=== PATIENT | female | born 1955 | race American Indian/Alaskan Native ===

== ENCOUNTER 2021-12-02 15:24 | Observation (INO) | payer MEDICARE ==
[2021-12-02] MEDS ORDERED: ONDANSETRON 4 MG/2 ML INJ IV ONE (15:37)
[2021-12-02] MEDS ORDERED: MORPHINE 2 MG/1 ML INJ IV ONE (15:37)
--- NOTE | 2021-12-02 15:44 | Emergency Department Report ---
Blank Doc - Documentation Documentation: 66-year-old female that presents with mid and lower back pains s/p trip and fall that occurred [employer]. Patient denies any other injuries or complaints. Denies any LOC. Denies any weakness. Denies any neck pains or headaches. Exam: Mid and lower back tenderness. Otherwise physical exam is unremarkable. 1- This is a initial triage assessment/medical screening only. Full assessment and work-up will be completed once the patient is in proper hospital gown, ED bed and in a private room setting. This initial assessment/diagnostic orders/clinical plan/ treatment(s) is/are subject to change based on pt's health status, clinical progression and re-assessment by fellow clinical providers in the ED. Further treatment and workup at subsequent clinical providers discretion. Patient/guardians urged not to elope from ED as their condition may be serious if not clinically assessed and managed. 2-xrays 3-morphine/zofran The patient was evaluated in the emergency department for symptoms described in the history of present illness. He/she was evaluated in the context of the global COVID-19 pandemic, which necessitated consideration that the patient might be at risk for infection with the virus that causes COVID-19. Institutional protocols and algorithms that pertain to the evaluation of patients at risk for COVID-19 are in a state of rapid change based on information released by regulatory bodies including the CDC and federal and state organizations. These policies and algorithms were followed during the patient's care in the emergency department. Please note that these policies, procedures and recommendations changed on a rapid basis.
--- NOTE | 2021-12-02 16:15 | XRay Report ---
Thoracic spine 2 views INDICATION: Back pain FINDINGS: Alignment appears normal. No compression fractures seen. Pedicles appear normal throughout. Signer Name: Dima Ledezma MD Signed: 12/02/2021 4:10 PM Workstation Name: [id number]
--- NOTE | 2021-12-02 16:24 | XRay Report ---
Lumbar spine, 2 views HISTORY: Low back pain after fall COMPARISON: None available FINDINGS: There is an age-indeterminate but recent appearing compression fracture of the superior endplate of L 2 with approximately 25% vertebral body height loss. No significant retropulsion. Other vertebral bod y heights are maintained. Alignment is normal. Mild/moderate lower lumbar spondylosis. Signer Name: Hansel Rojas MD Signed: 12/02/2021 4:19 PM Workstation Name: [id number]
[2021-12-02] MEDS ORDERED: fentaNYL 100 MCG/2 ML INJ IV ONE (17:37)
[2021-12-02] MEDS ORDERED: KETOROLAC 30 MG/1 ML INJ IV ONE (17:38)
--- NOTE | 2021-12-02 17:47 | Emergency Department Report ---
HPI - General Chief Complaint: Back Pain/Injury Time Seen by Provider: 12/02/21 15:36 - HPI HPI: Reassessment 2 The patient is a 66-year-old female present with a chief complaint of back pain after fall. Patient states earlier today she slipped and fell landing on her buttocks. Patient complains of severe low back pain since the fall. Patient gives her pain a score of 10/10 ED Past Medical Hx - Past Medical History Hx Hypertension: Yes Additional medical history: Hypercholesterolemia, osteoarthritis, gastritis, peripheral edema - Surgical History Hx Appendectomy: Yes Additional Surgical History: Hysterectomy - Family History Family history: no significant - Social History Smoking Status: Current Every Day Smoker (1/2 pack/day) Substance Use Type: None ED Review of Systems ROS: Stated complaint: FALL Other details as noted in HPI Constitutional: no symptoms reported Eyes: denies: eye pain ENT: denies: throat pain Respiratory: no symptoms reported Cardiovascular: denies: chest pain Endocrine: no symptoms reported Gastrointestinal: denies: abdominal pain Genitourinary: denies: dysuria Musculoskeletal: back pain Neurological: denies: headache Physical Exam - Physical Exam Vital Signs: Vital Signs 12/02/21 12/02/21 15:40 15:52 Temperature 97.5 F L 97.5 F L Pulse Rate 70 70 Respiratory 18 18 Rate Blood Pressure 168/103 168/103 [Right] O2 Sat by Pulse 98 98 Oximetry Physical Exam: GENERAL: The patient is well-developed well-nourished female lying on stretcher not appearing to be in acute distress. [] HEENT: Normocephalic. Atraumatic. Extraocular motions are intact. Patient has moist mucous membranes. NECK: Supple. Trachea midline CHEST/LUNGS: There is no respiratory distress noted. SKIN: There is no rash. There is no edema. There is no diaphoresis. NEURO: The patient is awake, alert, and oriented. The patient is cooperative. The patient has no focal neurologic deficits. The patient has normal speech. GCS 15 MUSCULOSKELETAL: There is tenderness to palpation of the axial lumbar spine. There is no step-off. There is no tenderness to palpation of the thoracic or cervical spine. There is no evidence of acute injury. ED Course Vital Signs 12/02/21 12/02/21 15:40 15:52 Temperature 97.5 F L 97.5 F L Pulse Rate 70 70 Respiratory 18 18 Rate Blood Pressure 168/103 168/103 [Right] O2 Sat by Pulse 98 98 Oximetry - Consultations Consultation #1: 12/02/21 18:59 Neurosurgery paged 12/02/21 19:13 Case discussed with neurosurgeon Dr. Browne-recommends admission for pain control and will have patient fitted for a brace ED Medical Decision Making - Radiology Data Radiology results: report reviewed (Thoracic spine x-ray, lumbar spine x-ray, CT lumbar spine), image reviewed (Thoracic spine x-ray, lumbar spine x-ray, CT lumbar spine) interpreted by me: Thoracic spine x-ray-no acute fracture [facility] [address] [place] [address] XRay Report Signed Patient: TIFFANI KATHLEEN MR#: [id number] : 1955 Acct:[id number] Age/Sex: 66 / F ADM Date: 12/02/21 Loc: ED Attending Dr: Ordering Physician: MERCY ECKERT NP Date of Service: 12/02/21 Procedure(s): XR spine thoracic 2V Accession Number(s): [id number] cc: MERCY ECKERT NP Fluoro Time In Minutes: Thoracic spine 2 views INDICATION: Back pain FINDINGS: Alignment appears normal. No compression fractures seen. Pedicles appear normal throughout. Signer Name: Dima Ledezma MD Signed: 12/02/2021 4:10 PM Workstation Name: [id number] Transcribed By: CW Dictated By: REBECA LEDEZMA MD Electronically Authenticated By: ERBECA LEDEZMA MD Signed Date/Time: 12/02/211609 DD/ 09 TD/TT: Print Cancel [facility] [address] [place] [address] XRay Report Signed Patient: TIFFANI KATHLEEN MR#: [id number] : 1955 Acct:[id number] Age/Sex: 66 / F ADM Date: 12/02/21 Loc: ED Attending Dr: Ordering Physician: MERCY ECKERT NP Date of Service: 12/02/21 Procedure(s): XR spine lumbosacral 2-3V Accession Number(s): [id number] cc: DAMIEN LAND Time In Minutes: Lumbar spine, 2 views HISTORY: Low back pain after fall COMPARISON: None available FINDINGS: There is an age-indeterminate but recent appearing compression fracture of the superior endplate of L2 with approximately 25% vertebral body height loss. No significant retropulsion. Other vertebral body heights are maintained. Alignment is normal. Mild/moderate lower lumbar spondylosis. Signer Name: José Luis Rojas MD Signed: 12/02/2021 4:19 PM Workstation Name: [id number] Transcribed By: JS Dictated By: JOSÉ LUIS ROJAS MD Electronically Authenticated By: JOSÉ LUIS ROJAS MD Signed Date/Time: 12/02/211618 DD/ 11 TD/TT: [facility] [address] [id number] Cat Scan Report Signed Patient: TIFFANI KATHLEEN MR#: [id number] : 1955 Acct:[id number] Age/Sex: 66 / F ADM Date: 12/02/21 Loc: ED Attending Dr: Ordering Physician: MISTY NAZARIO MD Date of Service: 12/02/21 Procedure(s): CT lumbar spine wo con Accession Number(s): [id number] cc: MISTY NAZARIO MD CT LUMBAR SPINE WITHOUT CONTRAST HISTORY: Fell down COMPARISON: Both sacral spine series obtained earlier today TECHNIQUE: CT images of the lumbar spine were obtained without contrast. Sagittal and coronal reformats were post- processed.All CT scans at this location are performed using CT dose reduction for ALARA by means of automated exposure control. CONTRAST: None. FINDINGS: Alignment: Normal. No traumatic subluxation. Vertebrae: L2 vertebral body: Vertebral compression fracture involving the superior endplate and anterior cortex and posterior cortex; inferior cortex normal; approximately 20% height loss; posterior elements normal; posterior band intact; minimal retropulsion on the left side with the minimal narrowing of the bony canal; this is a type A 3 compression injury anterior column. Other lumbar vertebral bodies: Normal Disc Spaces: L1-L2: Shallow disc bulge; neuroforamina are normal L2-L3: Normal Other lumbar vertebral bodies: Normal Facet Joints:No significant abnormality. Additional Findings: None IMPRESSION: L2 vertebral body: Vertebral compression fracture along the superior endplate with approximately 25% height loss; fracture line involves superior endplate, anterior cortex and the posterior cortex; minimal retropulsion on the left side; posterior band intact; type A 3 compression fracture Signer Name: Phyllis Butler MD Signed: 12/02/2021 6:48 PM Workstation Name: [email or web address] Transcribed By: BS Dictated By: Phyllis Hillman MD Electronically Authenticated By: Phyllis Hillmna MD Signed Date/Time: 12/02/211847 DD/ 40 TD/TT: Print Cancel - Differential Diagnosis Lumbar fracture, lumbar strain, lumbar contusion Critical care attestation.: If time is entered above; I have spent that time in minutes in the direct care of this critically ill patient, excluding procedure time. ED Disposition Clinical Impression: Compression fracture of L2 Disposition: ADMITTED INPATIENT Is pt being admited?: Yes Does the pt Need Aspirin: No Condition: Fair Referrals: MANDO DUMONT MD [Primary Care Provider] - 3-5 Days Time of Disposition: 19:33 (Hospitalist called (Dr. Castellanos))
--- NOTE | 2021-12-02 18:53 | Cat Scan Report ---
CT LUMBAR SPINE WITHOUT CONTRAST HISTORY: Fell down COMPARISON: Both sacral spine series obtained earlier today TECHNIQUE: CT images of the lumbar spine were obtained without contrast. Sagittal and coronal reform ats were post-processed.All CT scans at this location are performed using CT dose reduction for ALARA by means of automated exposure control. CONTRAST: None. FINDINGS: Alignment: Normal. No traumatic subluxation. Vertebrae: L2 vertebral body: Vertebral compression fracture involving the superior endplate and anterior cortex and posterior cortex; inferior cortex normal; approximately 20% height loss; posterior elements norm al; posterior band intact; minimal retropulsion on the left side with the minimal narrowing of the [place] canal; this is a type A 3 compression injury anterior column. Other lumbar vertebral bodies: Normal Disc Spaces: L1-L2: Shallow disc bulge; neuroforamina are normal L2-L3: Normal Other lumbar vertebral bodies: Normal Facet Joints:No significant abnormality. Additional Findings: None IMPRESSION: L2 vertebral body: Vertebral compression fracture along the superior endplate with approximately 25% height loss; fracture line involves superior endplate, anterior cortex and the posterior cortex; mini mal retropulsion on the left side; posterior band intact; type A 3 compression fracture Signer Name: Phyllis Butler MD Signed: 12/02/2021 6:48 PM Workstation Name: [id number]
--- NOTE | 2021-12-03 00:13 | History and Physical Report ---
History of Present Illness Date of examination: 12/02/21 Date of admission: 12/02/21 19:23 Chief complaint: Severe low back pain with radiation to the right leg after fall History of present illness: 66-year-old female slipped and fell down today. Since then patient has been low back pain with radiation into right lower 70. Pain is about 10 on a scale of 1- 10 Patient has a history of osteoarthritis and hyperlipidemia. - Past Medical History --Hypertension: Yes --Additional medical history: Hypercholesterolemia, osteoarthritis, gastritis, peripheral edema - Surgical History --Appendectomy: Yes --Additional Surgical History: Hysterectomy - Family History --Family history: no significant - Social History Smoking Status: Current Every Day Smoker (1/2 pack/day) Substance Use Type: None Review of Systems ROS: Stated complaint: FALL Other details as noted in HPI Constitutional: no symptoms reported Eyes: denies: eye pain ENT: denies: throat pain Respiratory: no symptoms reported Cardiovascular: denies: chest pain Endocrine: no symptoms reported Gastrointestinal: denies: abdominal pain Genitourinary: denies: dysuria Musculoskeletal: back pain Neurological: denies: headache Medications and Allergies Allergies Allergy/AdvReac Type Severity Reaction Status Date / Time No Known Allergies Allergy Verified 12/02/21 15:43 Exam - Constitutional Vitals: Temp Pulse Resp BP Pulse Ox 97.5 F L 70 18 168/103 98 12/02/21 15:52 12/02/21 15:52 12/02/21 15:52 12/02/21 15:52 12/02/21 15:52 General appearance: Present: mild distress, well-nourished - EENT Eyes: Present: PERRL ENT: hearing intact, clear oral mucosa - Neck Neck: Present: supple, normal ROM - Respiratory Respiratory effort: normal Respiratory: bilateral: CTA - Cardiovascular Heart rate: 78 Rhythm: regular Heart Sounds: Present: S1 & S2. Absent: rub, click - Extremities Extremities: no ischemia, pulses intact, pulses symmetrical, No edema, abnormal (Lower back tenderness present and straight leg raising test positive on right side) Peripheral Pulses: within normal limits - Abdominal General gastrointestinal: Present: soft, non-tender, non-distended, normal bowel sounds Female genitourinary: Present: normal - Integumentary Integumentary: Present: clear, warm, dry - Musculoskeletal Musculoskeletal: gait normal, strength equal bilaterally - Psychiatric Psychiatric: appropriate mood/affect, intact judgment & insight - Neurologic Neurologic: CNII-XII intact, moves all extremities - Allied Health Allied health notes reviewed: nursing, case management Results - Imaging and Cardiology Imaging and Cardiology: X-rays of the lumbar spine Compression fracture of the superior endplate of L2 with approximately 25% vertebral body height loss. No retropulsion. Other vertebral heights are maintained. Alignment is normal. Mild/moderate lower lumbar spondylosis. Lumbar spine CT L2 vertebral body compression fracture along the superior endplate with approximately 25% height loss. Fracture line involves the superior endplate. Anterior cortex of the posterior cortex minimal retropulsion of the left side. Posterior band intact. CAD. 3 compression fracture. Thoracic spine Normal. No compression fractures. Assessment and Plan Advance Directives: Yes (Full code) VTE prophylaxis?: Chemical Plan of care discussed with patient/family: Yes - Patient Problems (1) Compression fracture of L2 Current Visit: Yes Status: Acute Qualifiers: Encounter type: initial encounter Qualified Code(s): S32.020A - Wedge compression fracture of second lumbar vertebra, initial encounter for closed fracture Plan to address problem: Compression fracture with radiculopathy Pain management for now Neurosurgery consulted Probably no binder but back binder (2) Hypertension Current Visit: Yes Status: Chronic Qualifiers: Hypertension type: primary hypertension Qualified Code(s): I10 - Essential (primary) hypertension Plan to address problem: Continue antihypertensives (3) DVT prophylaxis Current Visit: Yes Status: Acute Plan to address problem: On anticoagulation and GI prophylaxis (4) Advance care planning Current Visit: Yes Status: Acute Plan to address problem: Disease education collected, care plan discussed, diagnosis discussed, prognosis discussed. Patient is full code. Patient acknowledges understanding and agreement with care plan. +30 minutes.
[2021-12-03] MEDS ORDERED: oxyCODONE /ACETAMINOPHEN 5-325MG TAB PO PRN (00:14)
[2021-12-03] MEDS ORDERED: ACETAMINOPHEN 325 MG TAB PO PRN (00:14)
[2021-12-03] MEDS ORDERED: ONDANSETRON 4 MG/2 ML INJ IV PRN (00:14)
[2021-12-03] MEDS ORDERED: HYDROmorphone 1 MG/1 ML INJ IV PRN (00:14)
[2021-12-03] MEDS ORDERED: METOCLOPRAMIDE 10 MG/2 ML INJ IV PRN (00:14)
[2021-12-03] MEDS: HEPARIN 5,000 UNIT/1 ML VIAL SUB-Q SCH ×2 (00:45→12:56)
[2021-12-03] MEDS: KETOROLAC 30 MG/1 ML INJ IV SCH ×3 (03:59→13:04)
[2021-12-03] MEDS ORDERED: VALSARTAN 160MG TAB PO SCH (10:00)
[2021-12-03] MEDS ORDERED: FAMOTIDINE 20 MG TAB PO SCH (10:00)
--- NOTE | 2021-12-03 20:44 | Discharge Summary ---
Providers - Providers Date of Admission: 12/02/21 19:23 Date of discharge: 12/03/21 Attending physician: TONY VARGAS 12/03/21 00:14 Consult to Physician [CONS] Routine Comment: Consulting Provider: CHERYL MOISE II Physician Instructions: Reason For Exam: L2 compression fracture Primary care physician: MANDO DUMONT MD Hospitalization Condition: Fair Disposition: 01 HOME / SELF CARE / HOMELESS - Discharge Diagnoses (1) Compression fracture of L2 Status: Acute Qualifiers: Encounter type: initial encounter Qualified Code(s): S32.020A - Wedge compression fracture of second lumbar vertebra, initial encounter for closed fracture (2) Hypertension Status: Chronic Qualifiers: Hypertension type: primary hypertension Qualified Code(s): I10 - Essential (primary) hypertension (3) DVT prophylaxis Status: Acute (4) Advance care planning Status: Acute Exam - Constitutional Vitals: Temp Pulse Resp BP Pulse Ox 97.3 F L 56 L 12 120/60 94 12/03/21 14:03 12/03/21 14:03 12/03/21 14:03 12/03/21 14:03 12/03/21 14:03 Plan Follow up with: MANDO DUMONT MD [Primary Care Provider] - 3-5 Days CHERYL MOISE II, MD [Staff Physician] - 7 Days
[2021-12-03 22:11] VITALS: BP 164/95
== END 2021-12-03 22:10 | disposition home or self-care (01) ==
LOC: ED 15:24 → 4A 19:23
PROVIDERS: ADMIT Internal Medicine; ATTEND Internal Medicine
DX: S32.020A Wedge compression fracture of second lumbar vertebra, initial encounter for closed fracture (principal); I10 Essential (primary) hypertension; M19.90 Unspecified osteoarthritis, unspecified site; K29.70 Gastritis, unspecified, without bleeding; R60.0 Localized edema; E78.00 Pure hypercholesterolemia, unspecified; F17.210 Nicotine dependence, cigarettes, uncomplicated; Z90.710 Acquired absence of both cervix and uterus; X58.XXXA Exposure to other specified factors, initial encounter; Y92.89 Other specified places as the place of occurrence of the external cause; Y93.89 Activity, other specified; Y99.8 Other external cause status
CPT/HCPCS: 72070; 72100; 72131; 96372; 96374; 96375; 96376; 99285; G0378; J1170; J1644; J1885; J2270; J2405; J2765; J3010

== ENCOUNTER 2022-01-13 10:52 | Outpatient (CLI) | payer MEDICARE ==
--- NOTE | 2022-01-13 15:43 | Magnetic Resonance Report ---
MR lumbar spine wo con INDICATION / CLINICAL INFORMATION: 66 years Female; S32.020 Lower back and left hip pain. TECHNIQUE: Multisequence, multiplanar images of the lumbar spine were obtained. COMPARISON: The study is compared to the previous lumbar CT of 12/02/2021. FINDINGS: ALIGNMENT: There is slight retrolisthesis at L4-L5 with mild disc desiccation. VERTEBRAE:The findings correlate with the earlier CT demonstrating mild compression fracture involvin g superior L2 vertebral body with approximately 25% loss of height. There is associated edema compati ble with subacute to process at. There is slight retropulsion which minimally flattens the ventral th ecal sac which also correlates with the prior exam. Mild edema is also seen along the superior, anter ior endplate of L3 without ossific compression. VISUALIZED SPINAL CORD: No significant abnormality. AVFYK-[id number]-[id number] ANALYSIS: L1-2: The central disc bulge minimally flattens the thecal sac at. The neural foramen are patent. L2-3: There is no disc protrusion or significant stenosis. L3-4: No significant abnormality. L4-5: There is a minimal a disc bulge without significant spinal stenosis. There are mild facet joint changes with slight foraminal narrowing bilaterally. L5-S1: There is no disc protrusion or spinal stenosis. There is mild facet joint hypertrophy with mil d foraminal narrowing bilaterally. PARASPINAL SOFT TISSUES: No significant abnormality. ADDITIONAL FINDINGS: No epidural collections are identified. IMPRESSION: 1. There is mild subacute fracture involving superior L2 vertebral body with associated slight retrop ulsion as detailed above which correlates with the earlier CT of 12/02/2021. 2. There are multilevel mild disc bulges involving remaining lumbar segments without significant spin al stenosis. Signer Name: Griffin Pena MD Signed: 01/13/2022 3:39 PM Workstation Name: [id number]
== END 2022-01-13 10:53 | disposition home or self-care (01) ==
LOC: MRI 10:52
PROVIDERS: ATTEND Psychiatry & Neurology Neurology
DX: S32.020A Wedge compression fracture of second lumbar vertebra, initial encounter for closed fracture (principal); M48.07 Spinal stenosis, lumbosacral region; M79.89 Other specified soft tissue disorders; M51.36 Other intervertebral disc degeneration, lumbar region; X58.XXXA Exposure to other specified factors, initial encounter; Y93.89 Activity, other specified; Y92.89 Other specified places as the place of occurrence of the external cause; Y99.8 Other external cause status
CPT/HCPCS: 72148